=== PATIENT | female | born 1980 | race American Indian/Alaskan Native ===

== ENCOUNTER 2017-02-24 01:10 | Inpatient (IN) | payer SELFPAY ==
[2017-02-24] MEDS ORDERED: LACTATED RINGERS 1,000 ML ONE (03:34)
[2017-02-24] MEDS ORDERED: STADOL ONE (03:49)
[2017-02-24] MEDS ORDERED: PITOCin/NS 20 UNIT/1000ML DRIP 20,000 MILLIUNITS/1,000 ML BAG IV ONE ×2 (04:11→05:57)
--- NOTE | 2017-02-24 04:14 | Ultrasound Report ---
FINAL REPORT EXAM: US OB LIMITED HISTORY: position TECHNIQUE: A limited transabdominal exam was obtained of the pelvis for evaluation of position. FINDINGS: There is an intrauterine with an estimated gestational age of 38 weeks 2 days. The fetus is in cephalic presentation. A complete survey of organs was not obtained. The heart rate is 138 BPM. IMPRESSION: Cephalic presentation, 38 week 2 day . heart rate 138 BPM.
[2017-02-24 04:30] LABS: Hematocrit 40.8 % (30.3-42.9); Hemoglobin 13.5 gm/dl (10.1-14.3); Mean Corpuscular HGB Conc 33 % (30-34); Mean Corpuscular Hemoglobin 27 pg (28-32); Mean Corpuscular Volume 83 fl (79-97); Platelet Count 245 K/mm3 (140-440); Red Blood Count 4.95 M/mm3 (3.65-5.03); Red Cell Distribution Width 14.4 % (13.2-15.2); White Blood Count 8.6 K/mm3 (4.5-11.0)
[2017-02-24] MEDS ORDERED: XYLOCAINE 2% INFILTRATI ONE (04:49)
--- NOTE | 2017-02-24 05:20 | History and Physical Report ---
History of Present Illness Date of examination: 02/24/17 Date of admission: 02/24/17 03:18 Chief complaint: I'm in labor History of present illness: IUP at 39 weeks in active labor. Patient was listed as walk-in but should have been assigned to [facility]. Her labs are normal. Her GBS is unknown. Past History Past Medical History: no pertinent history Past Surgical History: section Family/Genetic History: none Social history: single - Obstetrical History Expected Date of Delivery: 03/08/17 Actual Gestation: 38 Week(s) 2 Day(s) : 3 Number of Living Children: 3 Medications and Allergies Allergies Allergy/AdvReac Type Severity Reaction Status Date / Time No Known Allergies Allergy Verified 02/24/17 03:12 Review of Systems All systems: negative Genitourinary: contractions - Vital Signs Vital signs: Vital Signs Resp BP 20 119/67 02/24/17 01:29 02/24/17 01:29 Temp Pulse Resp BP Pulse Ox 69 20 123/58 02/24/17 05:05 02/24/17 01:29 02/24/17 05:05 - Physical Exam Breasts: Cardiovascular: Regular rate, Normal S1, Normal S2 Lungs: Positive: Clear to auscultation, Normal air movement Abdomen: Positive: normal appearance, soft, normal bowel sounds. Negative: distention, tenderness Vulva: both: normal Vagina: Positive: normal moisture. Negative: discharge Cervix: Negative: lesion, discharge Uterus: Positive: normal size, normal contour Adnexa: both: normal Anus/Rectum: Positive: normal perianal skin, heme negative. Negative: rectal mass, hemorrhoids Extremities: Deep Tendon Reflex Grade: Normal +2 - Obstetrical Cervical Dilatation: 6 Cervical Effacement Percentage: 80 station: -2 Uterine Tone Measurement Phase: Contraction Results Result Diagrams: 02/24/17 03:50 Abnormal lab results 02/24/17 Range/Units 03:50 MCH 27 L (28-32) pg All other labs normal. Assessment and Plan IUP at 38.4 weeks. Admit to L&D. AROM if needed.. Will admit for labor and anticipate .
--- NOTE | 2017-02-24 05:30 | Procedure Note ---
OB Delivery Note - Delivery Date of Delivery: 02/24/17 Surgeon: JUAN BARAJAS Estimated blood loss: 200cc - Vaginal Delivery presentation: vertex Delivery position: OA Intrapartum events: meconium Delivery induction: none Delivery monitor: external FHT, external uterine Route of delivery: Delivery placenta: spontaneous Delivery cord: 3 umbilical vessels Delivery laceration: 2nd degree Delivery repair: vicryl Delivery comments: Viable female delivered over intact perineum with tight nuchal cord clamped and cut on the perineum. Infant handed to the NICU personnel due to presence of meconium. Placenta delivered spontaneously and intact with 3vc. Laceration repaired with 2.0 vicryl. patient tolerated procedure well. Excellent hemostasis. - A at 1 minute: 8 at 5 minutes: 9 Gender: Female (7 pounds 1 ounce)
[2017-02-24] MEDS ORDERED: MILK OF MAGNESIA PO PRN (05:56)
[2017-02-24] MEDS ORDERED: BENADRYL PO PRN (05:56)
[2017-02-24] MEDS ORDERED: DULCOLAX PR PRN (05:56)
[2017-02-24] MEDS ORDERED: PHENERGAN PO PRN (05:56)
[2017-02-24] MEDS ORDERED: PHENERGAN PR PRN (05:56)
[2017-02-24] MEDS ORDERED: TYLENOL PO PRN (05:56)
[2017-02-24] MEDS ORDERED: ZOFRAN IV PRN (05:56)
[2017-02-24] MEDS ORDERED: TUCKS PAD TP PRN ×2 (05:56→08:22)
[2017-02-24] MEDS ORDERED: SODIUM CHLORIDE FLUSH SYRINGE 10 ML IV PRN (06:00)
[2017-02-24] MEDS: MOTRIN PO SCH ×2 (06:18→16:40)
[2017-02-24] MEDS ORDERED: PITOCin/NS 20 UNIT/1000ML DRIP 20 UNITS/1,000 ML BAG IV SCH (07:00)
[2017-02-24] MEDS ORDERED: XYLOCAINE 1% 20 mL INFILTRATI ONE (07:00)
[2017-02-24] MEDS ORDERED: DERMOPLAST TP PRN (08:24)
--- NOTE | 2017-02-24 08:51 | Progress Note ---
Assessment and Plan A: day 1 S/P . P: Anticipate discharge tomorrow. Subjective - Subjective Date of service: 02/24/17 Principal diagnosis: day 1 S/P Interval history: day 1 S/P . Doing well. Tolerating a regular diet without nausea or vomiting. Ambulating well and voiding without difficulty. Patient denies headache, chest pain, shortness of breath, cough, leg pain, abdominal pain, or heavy vaginal bleeding. Patient reports: appetite normal, voiding normally, pain well controlled, flatus , ambulating normally [place]: doing well Objective - Vital Signs Latest vital signs: Vital Signs Temp Pulse Resp BP BP 02/24/17 07:00 99 F 64 20 120/63 02/24/17 05:50 74 136/66 02/24/17 05:35 67 127/70 02/24/17 05:20 67 123/56 02/24/17 05:05 69 123/58 02/24/17 04:56 74 137/60 02/24/17 04:03 65 136/65 02/24/17 01:34 75 119/67 02/24/17 01:29 20 119/67 Intake and Output 02/23/17 02/24/17 02/24/17 23:59 07:59 15:59 Other: Weight 90.718 kg Estimated Blood Loss 200 Patient Weight 02/24/17 23:59 Weight 90.718 kg - Exam Cardiovascular: Present: Regular rate, Normal S1, Normal S2 Lungs: Present: Clear to auscultation Abdomen: Present: normal appearance, soft. Absent: distention, tenderness, guarding, rigidity Uterus: Present: normal, firm, fundal height below umbilicus. Absent: bogginess , tenderness Extremities: Present: normal. Absent: tenderness, edema - Labs Labs: Abnormal lab results 02/24/17 Range/Units 03:50 MCH 27 L (28-32) pg
[2017-02-24] MEDS: COLACE PO SCH (09:02)
[2017-02-24] MEDS: PRENATAL VITAMIN PO SCH (09:02)
[2017-02-24] MEDS: NORCO 5/325 PO PRN ×2 (09:03→16:41)
[2017-02-24 19:28] LABS: Hematocrit 36.3 % (30.3-42.9); Hemoglobin 12.1 gm/dl (10.1-14.3)
[2017-02-25] MEDS: MOTRIN PO SCH ×4 (00:12→23:20)
[2017-02-25] MEDS: COLACE PO SCH ×3 (00:12→23:20)
--- NOTE | 2017-02-25 09:40 | Progress Note ---
Assessment and Plan A: day 2 S/P spontaneous vaginal delivery. Anemia. P: Discharge patient home today. Advised patient to continue her vitamins and iron supplements at home. Advised patient to avoid intercourse, avoid heavy lifting and housework, and avoid driving. Advised patient to follow up with [facility] in 6 weeks. discharge instructions and warning signs were discussed in detail with patient. Patient voiced understanding of all above instructions. Subjective - Subjective Date of service: 02/25/17 Principal diagnosis: day 2 S/P Interval history: day 2 S/P . Doing well. Tolerating a regular diet without nausea or vomiting. Ambulating well and voiding without difficulty. Patient reports small amount of lochia and no large clots. Patient denies headache, chest pain, shortness of breath, cough, leg pain, abdominal pain, heavy vaginal bleeding, or symptoms of depression. Patient is undecided regarding what she wants to use for control. Patient reports: appetite normal, voiding normally, pain well controlled, flatus , ambulating normally : doing well Objective - Vital Signs Latest vital signs: Vital Signs Temp Pulse Resp BP 02/25/17 06:37 18 02/25/17 05:42 18 02/25/17 01:12 18 02/25/17 01:09 98.2 F 68 18 113/58 02/25/17 00:12 18 02/24/17 16:45 97.4 F L 71 18 102/60 02/24/17 16:41 20 02/24/17 16:40 20 02/24/17 12:10 98.0 F 64 18 117/63 Intake and Output 02/24/17 02/25/17 02/25/17 23:59 07:59 15:59 Intake Total 120 600 Balance 120 600 Intake: Oral 120 Intake, Free Water 600 Other: Total, Intake Amount 120 # Voids Void 1 1 - Exam Cardiovascular: Present: Regular rate, Normal S1, Normal S2 Lungs: Present: Clear to auscultation Abdomen: Present: normal appearance, soft. Absent: distention, tenderness, guarding, rigidity Uterus: Present: normal, firm, fundal height below umbilicus. Absent: bogginess , tenderness Extremities: Present: normal. Absent: tenderness, edema
--- NOTE | 2017-02-25 09:45 | Discharge Summary ---
Providers - Providers Date of Admission: 02/24/17 03:18 Date of discharge: 02/25/17 Attending physician: DEAN BISWAS MD None Primary care physician: Dr. Biswas Hospitalization Reason for admission: active labor Delivery: Episiotomy: none Laceration: 1st degree Other procedures: none complications: none Discharge diagnosis: IUP at term delivered baby: female Pertinent studies: Labs Hospital course: Normal hospital course. Condition at discharge: Good Disposition: DC-01 TO HOME OR SELFCARE - Discharge Diagnoses (1) Term delivered Status: Acute Plan - Provider Discharge Summary Activity: routine, no sex for 6 weeks, no heavy lifting 4 weeks, no strenuous exercise Diet: routine Instructions: routine Additional instructions: Call your doctor immediately for: * Fever > 100.5 * Heavy vaginal bleeding ( >1 pad per hour) * Severe persistent headache * Shortness of breath * Reddened, hot, painful area to leg or breast - Follow up plan Follow up: PRIMARY CAREMD [Primary Care Provider] - 6 Weeks
[2017-02-25] MEDS: PRENATAL VITAMIN PO SCH (11:07)
[2017-02-26] MEDS: MOTRIN PO SCH (05:30)
[2017-02-26 09:51] VITALS: BP 110/60
== END 2017-02-26 12:00 | disposition home or self-care (01) | DRG 775 ==
LOC: TRG 01:10 → LD 03:18 → OB 06:41
PROVIDERS: ADMIT Obstetrics & Gynecology; ATTEND Obstetrics & Gynecology
PROC: 10E0XZZ Delivery of Products of Conception, External Approach (ICD-10-PCS; principal; 2017-02-24)
PROC: 0KQM0ZZ Repair Perineum Muscle, Open Approach (ICD-10-PCS; 2017-02-24)
DX: O77.0 Labor and delivery complicated by meconium in amniotic fluid (principal); Z37.0 Single live birth; Z3A.38 38 weeks gestation of pregnancy; O70.1 Second degree perineal laceration during delivery; O90.81 Anemia of the puerperium; D64.9 Anemia, unspecified
CPT/HCPCS: 36415; 76815; 85014; 85018; 85027; 86592; 86850; 86900; 86901; 99211; G0463; J0595; J2590; J7120; Q0169